=== PATIENT | female | born 1960 | race Caucasian/White ===

== ENCOUNTER 2017-07-01 11:14 | Emergency (ER) | payer SELFPAY ==
--- NOTE | 2017-07-01 12:02 | EDM.PDOC ---
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 He was found in the bed in the hotel and he apparently while sleeping. She is very upset and all of their family is back in [place] where she will take his ashes after the on 06-15-17. She cannot sleep and would like to have something to help with the acute anxiety and grief. Onset Date: 06/30/17 Onset Time: 10:00 Duration: Day(s): (1) Location: Reports: Generalized (Grieving of her .) Quality: Reports: Other (Grief reaction.) Severity: Moderate Improves with: Reports: None Worsens with: Reports: None Context: Reports: Other ( yesterday.) Associated Symptoms: Reports: No Other Symptoms - Related Data Allergies Allergy/AdvReac Type Severity Reaction Status Date / Time Penicillins Allergy Respiratory Verified 07/01/17 11:27 Depression Home Meds: Home Meds LORazepam 0.5 mg PO BEDTIME 10 Days #10 tablet 07/01/17 [Rx] ED ROS GENERAL - Review of Systems Review Of Systems: ROS reveals no pertinent complaints other than HPI. ED EXAM, GENERAL - Physical Exam Exam: See Below Exam Limited By: No Limitations General Appearance: Alert, WD/WN, No Apparent Distress Eye Exam: Bilateral Eye: EOMI, Normal Fundi, Normal Inspection, PERRL Ears: Normal External Exam, Normal Canal, Hearing Grossly Normal, Normal TMs Ear Exam: Bilateral Ear: Auricle Normal, Canal Normal, TM normal Nose: Normal Inspection, Normal Mucosa, No Blood Throat/Mouth: Normal Inspection, Normal Lips, Normal Teeth, Normal Gums, Normal Oropharynx, Normal Voice, No Airway Compromise Head: Atraumatic, Normocephalic Neck: Normal Inspection, Supple, Non-Tender, Full Range of Motion Respiratory/Chest: No Respiratory Distress, Lungs Clear, Normal Breath Sounds, No Accessory Muscle Use, Chest Non-Tender Cardiovascular: Normal Peripheral Pulses, Regular Rate, Rhythm, No Edema, No Gallop, No JVD, No Murmur, No Rub Extremities: Normal Inspection, Normal Range of Motion, Non-Tender, Normal Capillary Refill, No Pedal Edema Neurological: Alert, Oriented, CN II-XII Intact, Normal Cognition, Normal Gait, Normal Reflexes, No Motor/Sensory Deficits Psychiatric: Anxious, Depressed Mood, Tearful Skin Exam: Warm, Dry, Intact, Normal Color, No Rash Course - Vital Signs Text/Narrative:: Uneventful ED course. We had a long discussion about her 's . She will be given Lorazepam 0.5 mg po qhs, #10, which will help her sleep on her way back to [place] in the next 2 weeks. She will follow up with a doctor in [place]. Last Recorded V/S: Last Vital Signs Temp 36.5 C 07/01/17 11:28 Pulse 91 07/01/17 11:28 Resp 20 07/01/17 11:28 BP 159/90 H 07/01/17 11:28 Pulse Ox 100 07/01/17 11:28 Departure - Departure Time of Disposition: 12:06 Disposition: Home, Self-Care 01 Condition: Good Clinical Impression: Grief reaction - Discharge Information Prescriptions: LORazepam 0.5 mg PO BEDTIME 10 Days #10 tablet Referrals: PCP,None [Primary Care Provider] -
== END 2017-07-01 11:59 | disposition home or self-care (01) ==
LOC: FB.ED 11:14
DX: F43.23 Adjustment disorder with mixed anxiety and depressed mood (principal); Z88.0 Allergy status to penicillin
CPT/HCPCS: 99283